=== PATIENT | female | born 1990 | race Asian ===

== ENCOUNTER → 2023-03-20 12:59 | Outpatient (CLI) | payer SELFPAY ==
--- NOTE | 2023-03-20 13:18 | DI.RAD.S_ITS ---
PROCEDURE: XR HAND LT MIN 3V INDICATIONS: Left wrist pain below left thumb TECHNIQUE: 3 views of the hand(s) acquired. COMPARISON: None. FINDINGS: Bones: No displaced fracture. No dislocation. Small bone fragments are seen adjacent to the distal scaphoid. Soft tissues: No suspicious calcifications elsewhere. IMPRESSION: There are small bone fragments adjacent to the distal scaphoid, which may be due to prior injury. If there is high concern for further derangement, consider MRI evaluation. Dictated by: Angel Roy M.D. on 03/20/2023 at 13:59 Approved by: Angel Roy M.D. on 03/20/2023 at 14:00
--- NOTE | 2023-03-20 13:18 | DI.RAD.S_ITS ---
PROCEDURE: XR FOREARM LT 2V INDICATIONS: Left wrist pain below left thumb TECHNIQUE: 2 views of the forearm were acquired. COMPARISON: None. FINDINGS: Bones: No displaced fracture of the radial or ulnar shaft. Soft tissues: No suspicious calcifications. IMPRESSION: No displaced fracture of the radial or ulnar shaft. If there is high concern for occult injury, consider repeat radiography or cross-sectional imaging. Dictated by: Angel Roy M.D. on 03/20/2023 at 13:58 Approved by: Angel Roy M.D. on 03/20/2023 at 13:59
== END ==
PROVIDERS: Family Provider Obstetrics & Gynecology; PCP Obstetrics & Gynecology; Referring Provider Physician Assistant; Visit Provider Physician Assistant
DX: M25.532 Pain in left wrist (principal)
CPT/HCPCS: 73090; 73130